=== PATIENT | female | born 1955 | race Caucasian/White ===

== ENCOUNTER → 2018-05-08 | Outpatient (CLI) | payer OTHER ==
[~2018-05-08] MED LIST: FIORICET TABLET1 TAB; PROZAC20 MG
== END | disposition home or self-care (01) ==
LOC: SONOGRAMA 11:41 → MAMO-SONO 13:15
DX: M12.861 Other specific arthropathies, not elsewhere classified, right knee (principal); M17.11 Unilateral primary osteoarthritis, right knee

== ENCOUNTER 2018-12-17 08:09 | Outpatient (CLI) | payer OTHER ==
[~2018-12-17] VITALS: Ht 162.6 cm; Wt 62.6 kg
== END 2018-12-17 08:25 | disposition home or self-care (01) ==
LOC: OFIC 805 08:09
DX: R42 Dizziness and giddiness (principal); J31.0 Chronic rhinitis; J37.0 Chronic laryngitis; K14.1 Geographic tongue; D23.20 Other benign neoplasm of skin of unspecified ear and external auricular canal

== ENCOUNTER 2019-01-06 12:59 | Outpatient (CLI) | payer OTHER | END 2019-01-06 13:02 | disposition home or self-care (01) | LOC: RAD 12:59 | DX: M25.562 Pain in left knee (principal); M25.561 Pain in right knee ==

== ENCOUNTER 2019-04-20 07:43 | Outpatient (CLI) | payer OTHER | END 2019-04-20 08:25 | disposition home or self-care (01) | LOC: LAB 07:43 | DX: E11.9 Type 2 diabetes mellitus without complications (principal); D64.89 Other specified anemias; I10 Essential (primary) hypertension; J44.9 Chronic obstructive pulmonary disease, unspecified ==